=== PATIENT | female | born 1950 | race Caucasian/White ===

== ENCOUNTER 2021-11-23 07:28 | Inpatient (IN) | payer BC, OTHER ==
[~2021-11-23] VITALS: Ht 149.9 cm; Wt 58.1 kg
[2021-11-23 07:30] VITALS: BP_SYST 176
--- NOTE | 2021-11-23 07:30 | NUR ---
Placed in room 7 . Placed on cardiac surgeon, blood pressure machine and pulse oximeter. To gown for exam. Side rails up. Report given to FRANCISCO RUFFIN.
--- NOTE | 2021-11-23 07:35 | NUR ---
EKG performed at by JENNY. Physician given copy of EKG for review.
--- NOTE | 2021-11-23 07:40 | NUR ---
ER DR. HUGHES AT THE BEDSIDE EXAMINING PT
--- NOTE | 2021-11-23 07:40 | NUR ---
Assumed care of pt who was brought from home by her son c/o severe abd pain 12/30 since 399. Pt states she has not has a BM in two days. Denies medical hx or surg hx. Denies fever or diarrhea. Witnessed vomiting what appears to be bile. Patient is A&Ox4, agitated and moving in the bed frequently. Will continue to monitor and provide care as ordered.
[2021-11-23] MEDS ORDERED: MORPHINE 4 MG INJ. 4 MG/ML VIAL IVP ONE ×2 (07:45→08:30)
[2021-11-23] MEDS ORDERED: NACL 0.9% 1,000 ML IV ONE (07:45)
[2021-11-23] MEDS ORDERED: KETOROLAC TROMETHAMINE 30 MG VIAL IVP ONE (07:45)
[2021-11-23] MEDS ORDERED: BISACODYL 10 MG/SUPPOSITORY RC ONE (08:15)
[2021-11-23] MEDS ORDERED: ONDANSETRON HCL 4 MG/2 ML VIAL IVP ONE (08:15)
[2021-11-23] MEDS ORDERED: MAGNESIUM CITRATE 300 ML ORAL SOLUTION PO ONE (08:15)
[2021-11-23 08:40] LABS: CREATININE 0.74 mg/dL (0.55-1.30); POTASSIUM 3.4 mmol/L (3.5-5.1)
[2021-11-23 08:46] LABS: ALBUMIN 3.8 g/dL (3.4-4.8); BASOPHILS # (AUTO) 0.1 K/uL (0.0-0.2); BASOPHILS % (AUTO) 0.7 % (0.0-2.0); EOSINOPHILS # (AUTO) 0.1 K/uL (0.0-0.4); EOSINOPHILS % (AUTO) 1.1 % (0.0-4.0); HEMATOCRIT 45.5 % (36-48); HEMOGLOBIN 15.5 g/dL (12.0-16.0); LYMPHOCYTES # (AUTO) 1.9 K/uL (1.0-5.5); LYMPHOCYTES % (AUTO) 22.9 % (20.5-51.5); MEAN CORPUSCULAR HEMOGLOBIN 32 pg (27-31); MEAN CORPUSCULAR HGB CONC 34 % (32-36); MEAN CORPUSCULAR VOLUME 93 fL (79.0-98.0); MONOCYTES # (AUTO) 0.3 K/uL (0.0-1.0); MONOCYTES % (AUTO) 4.1 % (1.7-9.3); NEUTROPHILS # (AUTO) 5.8 K/uL (1.8-7.7); NEUTROPHILS % (AUTO) 71.2 % (40.0-70.0); RED BLOOD CELL COUNT(AUTO) 4.87 MIL/uL (4.2-6.2); RED CELL DISTRIBUTION WIDTH 13.5 % (9.0-15.0); WHITE BLOOD COUNT (AUTO) 8.1 K/uL (4.8-10.8)
[2021-11-23 09:11] LABS: TOTAL BILIRUBIN 0.2 mg/dL (0.0-1.0)
[2021-11-23 09:21] LABS: CALCIUM 8.8 mg/dL (8.4-11.0)
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
[2021-11-23 09:32] LABS: BILIRUBIN,URINE NEGATIVE (NEGATIVE); BLOOD, URINE 2+ (NEGATIVE); CLARITY/URINE CLEAR (CLEAR); COLOR,URINE YELLOW (YELLOW); GLUCOSE,URINE NEGATIVE (NEGATIVE); KETONES,URINE NEGATIVE (NEGATIVE); LEUKOCYTE ESTERASE ,URINE NEGATIVE (NEGATIVE); NITRITE, URINE NEGATIVE (NEGATIVE); PH,URINE 5.5 (5.0-8.0); PROTEIN URINE NEGATIVE (NEGATIVE); UROBILINOGEN,URINE 0.2 (0.2-1.0)
[2021-11-23 09:49] LABS: BACTERIA,URINE FEW /HPF (None Seen); WBC,URINE 0-3 /HPF (0-3)
[2021-11-23 12:08] LABS: PLATELET COUNT (AUTO) 390 K/uL (130-430)
[2021-11-23] MEDS ORDERED: HYDROmorphone 1 MG/ML INJ. CARTRIDGE IVP ONE (13:15)
[2021-11-23] MEDS ORDERED: guaiFENesin/DEXTROMETHORPHAN 10 ML UDC PO PRN (13:30)
[2021-11-23] MEDS ORDERED: MORPHINE 2 MG/ML INJ. SYRINGE IVP PRN (13:30)
[2021-11-23] MEDS ORDERED: D5NS 1,000 ML IV SCH (13:30)
[2021-11-23] MEDS ORDERED: HYDROcodone/ACETAMIN 7.5-325 MG TAB PO PRN (13:30)
[2021-11-23] MEDS ORDERED: ZOLPIDEM TARTRATE 5 MG TABLET PO PRN (13:30)
[2021-11-23] MEDS ORDERED: ACETAMINOPHEN 500 MG TABLET PO PRN (13:30)
[2021-11-23 14:31] LABS: INR 0.9 (0.8-1.2); PROTHROMBIN TIME 9.5 SECS (9.5-12.5)
[2021-11-23] MEDS ORDERED: GASTROGRAFIN 120 ML ONE (14:37)
[2021-11-23 14:43] LABS: FREE T4 (FREE THYROXINE) 0.9 ng/dl (0.8-1.5); PHOSPHORUS 3.1 mg/dL (2.7-4.5); THYROID STIMULATING HORMONE 0.57 uIu/mL (0.36-3.74)
--- NOTE | 2021-11-23 16:30 | NUR ---
research technologist is performing a series of q15 images of pt abdomen. Requests all fluids be stopped until images are complete. Discussed with provider, infusions to be paused until diagnostics are completed or pt can be transported to the floor.
--- NOTE | 2021-11-23 19:24 | NUR ---
Pt is awake in bed, following commands. Pt is A&O x4, and connected to monitor. Safety precautions in place. Son at bedside.
--- NOTE | 2021-11-23 19:24 | NUR ---
Report rec from Laura SINGH.
[2021-11-23] MEDS: D5NS 1,000 ML IV SCH ×2 (19:40→23:30)
--- NOTE | 2021-11-23 20:05 | NUR ---
Patient will be admitted to care of Dr. Graves. Admitted to telemetry unit. Will go to room 106A. Belongings list completed. Complete and up to date summary report printed. SBAR report given to Kari SINGH at bedside with opportunity for questions.
[2021-11-23 20:12] VITALS: BP_SYST 102
--- NOTE | 2021-11-23 20:15 | NUR ---
ADMISSION NOTE Received patient from ER via gurney. Patient admitted with diagnosis of SBO. Patient is awake, alert, oriented X 4. Patient oriented to hospital room, call light, toileting, pain management and safety-teach back done. Patient informed that I will be her nurse and that their room number is 106A. Personal belongings checked and Belongings List documented. Call light within reach.
--- NOTE | 2021-11-23 20:24 | NUR ---
CONSULTATION PAGED/CALLED Reason for Consultation: SBO Person Who was Notified: DR. ANIL CRISOSTOMO Consulting Physician: DR. JOSH ADAMS [employer] Saw Operator Specialty: SURGEON Ordering Physician: DR ELTON FUCHS
--- NOTE | 2021-11-24 00:15 | NUR ---
PATIENT RESTING: Patient resting quietly. No acute distress noted. Vital signs within normal range.
[2021-11-24 00:44] VITALS: BP_SYST 116
[2021-11-24] MEDS: D5NS 1,000 ML IV SCH ×2 (06:39→19:30)
--- NOTE | 2021-11-24 06:55 | NUR ---
CLOSING NOTES PATIENT AWAKE, NO COMPLAINTS AT THIS TIME, VITALS STABLE. ALL NEEDS ATTENDED TO. CALL LIGHT PLACED WITHIN REACH.
[2021-11-24] MEDS: ONDANSETRON HCL 4 MG/2 ML VIAL IVP PRN (07:48)
[2021-11-24 08:00] VITALS: BP_SYST 123
[2021-11-24 08:04] LABS: CALCIUM 9.5 mg/dL (8.4-11.0); CREATININE 1.02 mg/dL (0.55-1.30); POTASSIUM 3.6 mmol/L (3.5-5.1)
[2021-11-24] MEDS ORDERED: POTASSIUM CHLORIDE 20 MEQ TAB.PRT.SR PO PRN (09:00)
[2021-11-24] MEDS ORDERED: PANTOPRAZOLE SODIUM 40 MG TAB PO SCH (09:00)
--- NOTE | 2021-11-24 09:30 | NUR ---
DR CONDE IN TO SEE PT. WILL CONTINUE TO MONITOR PT CLOSELY. NGT CONNECTED TO LOW-INTERMITTENT SUCTION WITH GREEN DRAINAGE.
[2021-11-24] MEDS ORDERED: FIORCET PO PRN (11:00)
[2021-11-24] MEDS ORDERED: SODIUM PHOSPHATE,MONO-DIBASIC 133 ML ENEMA RC ONE (11:15)
[2021-11-24] MEDS ORDERED: PANTOPRAZOLE SODIUM 40 MG/VIAL (PROTONIX) IVP ONE (11:15)
[2021-11-24 12:00] VITALS: BP_SYST 143
--- NOTE | 2021-11-24 13:00 | NUR ---
Obtained order for fleets enema, order carried and pt had moderate sized bm.
[2021-11-24] MEDS ORDERED: EXCEDRIN EXTRA STRENGTH PO PRN (14:30)
[2021-11-24 14:35] LABS: BASOPHILS % (AUTO) 0.2 % (0.0-2.0); HEMATOCRIT 49.1 % (36-48); HEMOGLOBIN 16.4 g/dL (12.0-16.0); LYMPHOCYTES # (AUTO) 1.2 K/uL (1.0-5.5); LYMPHOCYTES % (AUTO) 8.7 % (20.5-51.5); MEAN CORPUSCULAR HEMOGLOBIN 32 pg (27-31); MEAN CORPUSCULAR HGB CONC 34 % (32-36); MEAN CORPUSCULAR VOLUME 94 fL (79.0-98.0); MONOCYTES # (AUTO) 0.9 K/uL (0.0-1.0); MONOCYTES % (AUTO) 6.9 % (1.7-9.3); NEUTROPHILS # (AUTO) 11.2 K/uL (1.8-7.7); NEUTROPHILS % (AUTO) 84.2 % (40.0-70.0); PLATELET COUNT (AUTO) 437 K/uL (130-430); RED BLOOD CELL COUNT(AUTO) 5.23 MIL/uL (4.2-6.2); RED CELL DISTRIBUTION WIDTH 13.8 % (9.0-15.0); WHITE BLOOD COUNT (AUTO) 13.3 K/uL (4.8-10.8)
[2021-11-24] MEDS: DOCUSATE SODIUM 100 MG/10 ML UDC PO PRN (14:45)
--- NOTE | 2021-11-24 15:00 | NUR ---
Son at the bedside, reviewed labs, and tests results in detail. Son and patient aware of plan of care, all questions answered and addresses. Continue to monitor pt closely.
[2021-11-24 16:00] VITALS: BP_SYST 140
[2021-11-24 20:00] VITALS: BP_SYST 132
[2021-11-25] VITALS: BP_SYST 129
--- NOTE | 2021-11-25 05:45 | NUR ---
NOTES NG TUBE ACCIDENTALLY OUT WHEN PATIENT WENT TO THE RESTROOM . PAGED AND TALKED TO DR. NICOLAS IF NG TUBE. NEED TO BE REINSERTED, STATED TO JUST LEAVE IT OUT. WILL CONTINUE TO MONITOR.
[2021-11-25] MEDS: D5NS 1,000 ML IV SCH ×2 (05:52→15:27)
[2021-11-25 06:32] LABS: BASOPHILS % (AUTO) 0.2 % (0.0-2.0); EOSINOPHILS % (AUTO) 0.2 % (0.0-4.0); HEMATOCRIT 43.1 % (36-48); LYMPHOCYTES # (AUTO) 1.3 K/uL (1.0-5.5); LYMPHOCYTES % (AUTO) 12.7 % (20.5-51.5); MEAN CORPUSCULAR HEMOGLOBIN 33 pg (27-31); MEAN CORPUSCULAR HGB CONC 35 % (32-36); MEAN CORPUSCULAR VOLUME 94 fL (79.0-98.0); MONOCYTES # (AUTO) 0.8 K/uL (0.0-1.0); MONOCYTES % (AUTO) 7.7 % (1.7-9.3); NEUTROPHILS # (AUTO) 8.1 K/uL (1.8-7.7); NEUTROPHILS % (AUTO) 79.2 % (40.0-70.0); PLATELET COUNT (AUTO) 380 K/uL (130-430); RED CELL DISTRIBUTION WIDTH 14.1 % (9.0-15.0); WHITE BLOOD COUNT (AUTO) 10.3 K/uL (4.8-10.8)
[2021-11-25 08:00] VITALS: BP_SYST 119
--- NOTE | 2021-11-25 08:00 | NUR ---
Recd pt a/ox4, denies CP, denies shortness of breath, assisted pt to bathroom, pt had small watery bm this morning, franklin brown in color. Spoke to son on the phone and provided update. AM assessment done and charted. IVF continues infusing at 100ml/hr, site is patent w/o signs of infiltration. pt remains npo. Call light placed within reach. continue to monitor pt closely.
[2021-11-25 08:48] LABS: CALCIUM 8.6 mg/dL (8.4-11.0); CREATININE 0.8 mg/dL (0.55-1.30); POTASSIUM 3.8 mmol/L (3.5-5.1)
[2021-11-25] MEDS: DOCUSATE SODIUM 100 MG/10 ML UDC PO PRN (08:53)
[2021-11-25] MEDS: PANTOPRAZOLE SODIUM 40 MG/VIAL (PROTONIX) IVP SCH (08:53)
[2021-11-25] MEDS: ONDANSETRON HCL 4 MG/2 ML VIAL IVP PRN (08:53)
--- NOTE | 2021-11-25 10:00 | NUR ---
Dr Ayoub at the bedside, discussed with pt plan of care, obtained order for clear diet, provided pt with juice and water. Continue to monitor pt closely and assist with ADLs.
[2021-11-25 12:00] VITALS: BP_SYST 113
--- NOTE | 2021-11-25 12:00 | NUR ---
Pt assisted by son, ambulating in the hallways with steady gait. encouraged pt to ambulate today.
--- NOTE | 2021-11-25 14:00 | NUR ---
Pt tolerating clears well. no n/v noted at this time. continue to monitor pt closely and update family at the beside. encouraged pt to call son when md visits occur, pt verbalized understanding.
--- NOTE | 2021-11-25 14:23 | NUR ---
Pt ambulating with physical therapist, tolerating well.
[2021-11-25 16:00] VITALS: BP_SYST 117
--- NOTE | 2021-11-25 16:10 | NUR ---
Pt c/o abdominal bloating, performed bladder scan and it shows 130ml urine amount. Encouraged pt to increase activity and drink fluids.
[2021-11-25 19:00] VITALS: BP_SYST 101
--- NOTE | 2021-11-25 19:15 | NUR ---
change of shift.pt.quiescent affect;calm,resting.pt.capable to ambulate/reposition self.general status stable/respiratory status stable;unlabored@room.call light/telephone w/in accwess of thpt.
[2021-11-25 20:00] VITALS: BP_SYST 101
--- NOTE | 2021-11-25 20:00 | NUR ---
pt.assessed.v/s assessed values wnl.no c/o pain,nausea.pt.apprised snacks/beverages are available w/in the shift.no requests posited@this hour.call light/telephone placed w/in access of the pt.
--- NOTE | 2021-11-25 22:00 | NUR ---
pt.assessed.no c/o pain,nausea.pt.requested blanket;warm provided.iv access intact;patent iv fluids infusing.pt.capable to reposition self.call light/telepho w/in access of the pt.
--- NOTE | 2021-11-26 | NUR ---
pt.assessed.v/s assessed values wnl.no c/o pain,nausea.iv access intact;patent.pt.capable to reposition self. call light/telephone placed w/in access of the pt.
--- NOTE | 2021-11-26 02:00 | NUR ---
pt.assessed.pt.quiescent;somnolent.per flacc pain mgx pt.absent facial grimaces/body posturing.iv access intact; patent.call light/telephone placed w/in access of the pt. /
--- NOTE | 2021-11-26 04:00 | NUR ---
pt.assessed.pt.quiescent;somnolent.per flacc pain mgx pt.absent facial grimaces/body posturing.pt.capable to reposition self. iv access intact;patent.call light/telephone w/in access of the pt.
[2021-11-26] MEDS: D5NS 1,000 ML IV SCH (04:56)
--- NOTE | 2021-11-26 06:23 | NUR ---
pt.assessed.no c/o pain,nausea.iv access intact;patent.pt.requested toiletries,soap,gown provided.pt.to wash self this am. general status stable.respiratory status stable;unlabored.call light/telephone w/in access of the pt.
[2021-11-26 06:55] LABS: BASOPHILS % (AUTO) 0.3 % (0.0-2.0); EOSINOPHILS # (AUTO) 0.1 K/uL (0.0-0.4); EOSINOPHILS % (AUTO) 1.5 % (0.0-4.0); HEMATOCRIT 37.7 % (36-48); HEMOGLOBIN 13.1 g/dL (12.0-16.0); LYMPHOCYTES # (AUTO) 1.6 K/uL (1.0-5.5); LYMPHOCYTES % (AUTO) 23.9 % (20.5-51.5); MEAN CORPUSCULAR HEMOGLOBIN 32 pg (27-31); MEAN CORPUSCULAR HGB CONC 35 % (32-36); MEAN CORPUSCULAR VOLUME 93 fL (79.0-98.0); MONOCYTES # (AUTO) 0.6 K/uL (0.0-1.0); MONOCYTES % (AUTO) 8.6 % (1.7-9.3); NEUTROPHILS # (AUTO) 4.3 K/uL (1.8-7.7); NEUTROPHILS % (AUTO) 65.7 % (40.0-70.0); PLATELET COUNT (AUTO) 336 K/uL (130-430); RED BLOOD CELL COUNT(AUTO) 4.03 MIL/uL (4.2-6.2); RED CELL DISTRIBUTION WIDTH 13.6 % (9.0-15.0); WHITE BLOOD COUNT (AUTO) 6.5 K/uL (4.8-10.8)
[2021-11-26 07:36] LABS: CALCIUM 8.3 mg/dL (8.4-11.0); CREATININE 0.68 mg/dL (0.55-1.30); POTASSIUM 3.7 mmol/L (3.5-5.1)
[2021-11-26 08:00] VITALS: BP_SYST 97
[2021-11-26] MEDS: PANTOPRAZOLE SODIUM 40 MG/VIAL (PROTONIX) IVP SCH (08:40)
== END 2021-11-26 09:30 | disposition home or self-care (01) | DRG 872 ==
LOC: SED 07:28 → STU 13:28
PROVIDERS: ADMIT Family Medicine; ATTEND Family Medicine
DX: A41.9 Sepsis, unspecified organism (principal); K56.609 Unspecified intestinal obstruction, unspecified as to partial versus complete obstruction; E87.6 Hypokalemia; E78.2 Mixed hyperlipidemia; Z20.822 Contact with and (suspected) exposure to COVID-19
CPT/HCPCS: 36415; 71045; 74021; 74250-TC; 76376; 80048; 80053; 80061; 81000; 82150; 83036; 83605; 83690; 83735; 83880; 84100; 84439; 84443; 85025; 85610-TC; 85730-TC; 93005; 96374; 96375; 99285; C9113; G0378; J1170; J1885; J1956; J2270; J2405; Q9963